=== PATIENT | female | born 1935 | race Hispanic/Latino ===

== ENCOUNTER 2017-04-29 19:18 | Inpatient (IN) | payer MEDICARE ==
[2017-04-29 20:32] LABS: BASOPHILS % (AUTO) 0.1 % (0.0-5.0); LYMPHOCYTES % (AUTO) 6.2 % (21.0-51.0); MEAN CORPUSCULAR HEMOGLOBIN 25.7 pg (27.0-33.0); MEAN CORPUSCULAR HGB CONC 31.6 g/dL (32.0-36.0); MEAN CORPUSCULAR VOLUME 81.5 fL (79-99); MONOCYTES % (AUTO) 7.2 % (3.0-13.0); NEUTROPHILS % (AUTO) 85.5 % (40.0-77.0); NUCLEATED RED BLOOD CELLS 0.6 % (0.0-0.19); PLATELET COUNT (AUTO) 351 K/uL (130-400); RED CELL DISTRIBUTION WIDTH 16.7 % (11.0-15.5); WHITE BLOOD COUNT (AUTO) 16.5 K/uL (4.8-10.8)
[2017-04-29 20:44] LABS: HEMATOCRIT 17.9 % (36-48)
[2017-04-29 21:00] LABS: INR 0.96 (0.85-1.15); PARTIAL THROMBOPLASTIN TIME 23.5 SEC (26.3-35.5); PROTHROMBIN TIME 10.1 SEC (9.6-11.6)
[2017-04-29 21:05] LABS: CREATININE 1.1 mg/dL (0.5-1.5); POTASSIUM 4.5 mmol/L (3.5-5.1)
[2017-04-29 21:09] LABS: ALBUMIN 2.2 g/dL (3.5-5.0); BILIRUBIN,TOTAL 0.2 mg/dL (0.2-1.0); TOTAL PROTEIN, SERUM 6.7 g/dL (6.0-8.3)
[2017-04-29] MEDS ORDERED: FAMOTIDINE 20MG TAB 20 MG TAB ONE (22:50)
[2017-04-30] VITALS (21 sets, daily range): BP systolic 93–150; BP diastolic 44–72
[2017-04-30] MEDS ORDERED: SODIUM CHLORIDE 0.9% 100 ML IV ONE (00:31)
[2017-04-30] MEDS ORDERED: DEXTROSE 50%-WATER 50 ML DISP.SYRIN IV PRN ×2 (00:45→02:30)
[2017-04-30] MEDS ORDERED: ONDANSETRON HCL 4 MG/2 ML VIAL IVP PRN (00:45)
[2017-04-30] MEDS ORDERED: GLUCAGON 1MG KIT 1 MG ML IM PRN ×2 (00:45→02:30)
[2017-04-30] MEDS ORDERED: MEROPENEM 500MG+NS 50ML 50 ML IV SCH (06:00)
[2017-04-30] MEDS ORDERED: MEROPENEM 500 MG VIAL IVP SCH (06:30)
[2017-04-30] MEDS: INSULIN HUMULIN R 100 UNIT/ML 3ML SQ SCH ×4 (07:30→20:35)
[2017-04-30] MEDS ORDERED: INSULIN R PO SS1 SQ SCH (07:30)
[2017-04-30] MEDS ORDERED: PRED5TAB44 PO (07:38)
[2017-04-30] MEDS ORDERED: METH250T11 PO (07:47)
[2017-04-30] MEDS ORDERED: GLYB-228 PO (07:47)
[2017-04-30] MEDS ORDERED: [UNRECOGNIZED DRUG - OTHER] (07:47)
[2017-04-30] MEDS ORDERED: KETO10 PO (07:51)
[2017-04-30] MEDS ORDERED: TRAM50TA4 PO (07:51)
[2017-04-30] MEDS ORDERED: VITA1CAP85 PO (07:51)
[2017-04-30 08:32] LABS: HEMATOCRIT 25.6 % (36-48); MEAN CORPUSCULAR HEMOGLOBIN 27.6 pg (27.0-33.0); MEAN CORPUSCULAR HGB CONC 33.7 g/dL (32.0-36.0); MEAN CORPUSCULAR VOLUME 81.8 fL (79-99); NUCLEATED RED BLOOD CELLS 0.1 % (0.0-0.19); PLATELET COUNT (AUTO) 283 K/uL (130-400); RED BLOOD CELL COUNT(AUTO) 3.12 MIL/uL (4.00-5.50); RED CELL DISTRIBUTION WIDTH 16.3 % (11.0-15.5); WHITE BLOOD COUNT (AUTO) 15.2 K/uL (4.8-10.8)
[2017-04-30 08:56] LABS: LYMPHOCYTES % (MANUAL) 5 % (22-44); MAN.DIFF COMMENT-IMPRESSION MANUAL DIFFERENTIAL; MONOCYTES % (MANUAL) 1 % (2-9); PLATELET MORPHOLOGY COMMENT ADEQUATE; SEGMENTED NEUTROPHILS % 94 % (40-70)
[2017-04-30] MEDS: FAMOTIDINE 20MG TAB 20 MG TAB PO SCH ×2 (11:09→20:34)
[2017-04-30] MEDS: LEVOFLOXACIN 500 MG/D5W 100 ML 100 ML IV SCH (11:10)
[2017-04-30] MEDS: PANTOPRAZOLE SODIUM 40 MG TABLET.DR PO SCH (16:48)
[2017-04-30] MEDS: GLYBURIDE/METFORMIN HCL 5/500MG TABLET PO SCH (16:48)
[2017-04-30] MEDS: MEROPENEM 500 MG VIAL IVP SCH (20:35)
[2017-04-30] MEDS: TRAMADOL HCL 50 MG TABLET PO SCH (20:37)
[2017-05-01 04:22] VITALS: BP 120/62
[2017-05-01] MEDS: MEROPENEM 500 MG VIAL IVP SCH ×3 (04:36→19:00)
[2017-05-01 05:43] LABS: CREATININE 0.8 mg/dL (0.5-1.5); POTASSIUM 4.9 mmol/L (3.5-5.1)
[2017-05-01 05:44] LABS: HEMATOCRIT 26.9 % (36-48); MEAN CORPUSCULAR HEMOGLOBIN 26.6 pg (27.0-33.0); MEAN CORPUSCULAR HGB CONC 32.8 g/dL (32.0-36.0); MEAN CORPUSCULAR VOLUME 81.2 fL (79-99); NUCLEATED RED BLOOD CELLS 0.1 % (0.0-0.19); PLATELET COUNT (AUTO) 301 K/uL (130-400); RED BLOOD CELL COUNT(AUTO) 3.31 MIL/uL (4.00-5.50); RED CELL DISTRIBUTION WIDTH 16.5 % (11.0-15.5); WHITE BLOOD COUNT (AUTO) 15.3 K/uL (4.8-10.8)
[2017-05-01] MEDS: INSULIN HUMULIN R 100 UNIT/ML 3ML SQ SCH ×4 (06:41→21:00)
[2017-05-01] MEDS: PANTOPRAZOLE SODIUM 40 MG TABLET.DR PO SCH ×2 (06:46→16:57)
[2017-05-01 07:35] VITALS: BP 135/57
[2017-05-01 08:17] LABS: EOSINOPHILS % (MANUAL) 1 % (1-6); LYMPHOCYTES % (MANUAL) 5 % (22-44); MAN.DIFF COMMENT-IMPRESSION MANUAL DIFFERENTIAL; MONOCYTES % (MANUAL) 5 % (2-9); PLATELET MORPHOLOGY COMMENT ADEQUATE; SEGMENTED NEUTROPHILS % 89 % (40-70)
[2017-05-01] MEDS: TRAMADOL HCL 50 MG TABLET PO SCH ×2 (09:00→21:00)
[2017-05-01] MEDS: GLYBURIDE/METFORMIN HCL 5/500MG TABLET PO SCH ×3 (09:10→16:57)
[2017-05-01] MEDS: VITAMIN B COMPLEX 1 CAPSULE PO SCH (09:10)
[2017-05-01] MEDS: FAMOTIDINE 20MG TAB 20 MG TAB PO SCH ×2 (09:11→21:45)
[2017-05-01] MEDS: LEVOFLOXACIN 500 MG/D5W 100 ML 100 ML IV SCH (11:27)
[2017-05-01 11:35] VITALS: BP 125/66
[2017-05-01 17:09] VITALS: BP 122/59
[2017-05-01] MEDS ORDERED: MAGNESIUM HYDROXIDE 30 ML/UDCUP PO SCH (19:00)
[2017-05-01 20:00] VITALS: BP 107/58
[2017-05-02] VITALS: BP 137/71
[2017-05-02 04:00] VITALS: BP 115/54
[2017-05-02] MEDS: MEROPENEM 500 MG VIAL IVP SCH (04:54)
[2017-05-02] MEDS: LEVOFLOXACIN 500 MG/D5W 100 ML 100 ML IV SCH (04:54)
[2017-05-02 05:36] LABS: HEMATOCRIT 26.4 % (36-48); MEAN CORPUSCULAR HEMOGLOBIN 27.7 pg (27.0-33.0); MEAN CORPUSCULAR HGB CONC 34.2 g/dL (32.0-36.0); MEAN CORPUSCULAR VOLUME 81.2 fL (79-99); NUCLEATED RED BLOOD CELLS 0.1 % (0.0-0.19); PLATELET COUNT (AUTO) 316 K/uL (130-400); RED BLOOD CELL COUNT(AUTO) 3.25 MIL/uL (4.00-5.50); RED CELL DISTRIBUTION WIDTH 17.1 % (11.0-15.5); WHITE BLOOD COUNT (AUTO) 12.6 K/uL (4.8-10.8)
[2017-05-02 05:47] LABS: POTASSIUM 4.7 mmol/L (3.5-5.1)
[2017-05-02] MEDS: PANTOPRAZOLE SODIUM 40 MG TABLET.DR PO SCH (06:35)
[2017-05-02] MEDS: INSULIN HUMULIN R 100 UNIT/ML 3ML SQ SCH (06:39)
[2017-05-02 07:18] LABS: EOSINOPHILS % (MANUAL) 1 % (1-6); LYMPHOCYTES % (MANUAL) 8 % (22-44); MONOCYTES % (MANUAL) 6 % (2-9); SEGMENTED NEUTROPHILS % 85 % (40-70)
[2017-05-02 07:19] LABS: MAN.DIFF COMMENT-IMPRESSION MANUAL DIFFERENTIAL; PLATELET MORPHOLOGY COMMENT ADEQUATE
[2017-05-02 07:48] VITALS: BP 127/62
[2017-05-02] MEDS: GLYBURIDE/METFORMIN HCL 5/500MG TABLET PO SCH (07:55)
[2017-05-02] MEDS: VITAMIN B COMPLEX 1 CAPSULE PO SCH (07:55)
[2017-05-02] MEDS: FAMOTIDINE 20MG TAB 20 MG TAB PO SCH (07:55)
[2017-05-02] MEDS: TRAMADOL HCL 50 MG TABLET PO SCH (07:56)
== END 2017-05-02 12:00 | disposition home or self-care (01) | DRG 377 ==
LOC: EDH 19:18 → EDHIP 23:20 → 4AH 04-30 07:21
PROVIDERS: ADMIT Internal Medicine Nephrology; ATTEND Internal Medicine Nephrology
PROC: 0DB68ZX Excision of Stomach, Via Natural or Artificial Opening Endoscopic, Diagnostic (ICD-10-PCS; principal; 2017-04-30)
PROC: 30233N1 Transfusion of Nonautologous Red Blood Cells into Peripheral Vein, Percutaneous Approach (ICD-10-PCS; 2017-04-30)
DX: K25.4 Chronic or unspecified gastric ulcer with hemorrhage (principal); E43 Unspecified severe protein-calorie malnutrition; N13.30 Unspecified hydronephrosis; E11.9 Type 2 diabetes mellitus without complications; D50.9 Iron deficiency anemia, unspecified; K57.32 Diverticulitis of large intestine without perforation or abscess without bleeding; D72.829 Elevated white blood cell count, unspecified; I10 Essential (primary) hypertension; K80.20 Calculus of gallbladder without cholecystitis without obstruction; N32.89 Other specified disorders of bladder
CPT/HCPCS: 36415; 71045; 74176; 80048; 80053; 82270; 82550; 82948; 84484; 85025; 85060; 85610; 85730; 86850; 86900; 86901; 86922; 88305; 88313; 88341; 88342; 93005; 99291; A4218; J1815; J1956; J2185; P9016

== ENCOUNTER 2017-05-25 14:16 | Inpatient (IN) | payer MEDICARE ==
[~2017-05-25] VITALS: Ht 157.5 cm; Wt 49.7 kg
[~2017-05-25 14:16] MED LIST: GLYB-228 PO; METH250T3 PO; TRAM50TA4 PO; VITA1CAP85 PO
[2017-05-25 15:20] LABS: HEMATOCRIT 23.6 % (36-48); MEAN CORPUSCULAR HEMOGLOBIN 25.8 pg (27.0-33.0); MEAN CORPUSCULAR HGB CONC 31.9 g/dL (32.0-36.0); MEAN CORPUSCULAR VOLUME 80.9 fL (79-99); PLATELET COUNT (AUTO) 317 K/uL (130-400); RED BLOOD CELL COUNT(AUTO) 2.92 MIL/uL (4.00-5.50); RED CELL DISTRIBUTION WIDTH 17.5 % (11.0-15.5); WHITE BLOOD COUNT (AUTO) 13.6 K/uL (4.8-10.8)
[2017-05-25] MEDS ORDERED: POTASSIUM CHLORIDE 10% ELIXIR 20 MEQ/15 ML UDCUP PO PRN (15:30)
[2017-05-25] MEDS ORDERED: DEXTROSE 50%-WATER 50 ML DISP.SYRIN IV PRN (15:30)
[2017-05-25] MEDS ORDERED: MAG HYDROX/AL HYDROX/SIMETH ES 30 ML SUSP UDCUP PO PRN (15:30)
[2017-05-25] MEDS ORDERED: DiphenhydrAMINE HCL 50 MG/ML VIAL IVP PRN (15:30)
[2017-05-25] MEDS ORDERED: GUAIFENESIN-DM 200/20 MG 10 ML PO PRN (15:30)
[2017-05-25] MEDS ORDERED: LIDOCAINE HCL-MPF 1% 2ML VIAL IJ PRN (15:30)
[2017-05-25] MEDS ORDERED: NITROGLYCERIN 0.4 MG SL TAB SL PRN (15:30)
[2017-05-25] MEDS ORDERED: POTASSIUM CHLORIDE 20MEQ/100ML 100 ML IV PRN (15:30)
[2017-05-25] MEDS ORDERED: LACTULOSE 20 GM/30 ML UDCUP PO PRN (15:30)
[2017-05-25] MEDS ORDERED: SODIUM CHLORIDE 0.9% 10 ML VIAL IVP SCH (15:30)
[2017-05-25] MEDS ORDERED: ZOLPIDEM TARTRATE 5 MG TAB PO PRN (15:30)
[2017-05-25] MEDS ORDERED: ONDANSETRON HCL 4 MG/2 ML VIAL IVP PRN (15:30)
[2017-05-25] MEDS ORDERED: DIPHENHYDRAMINE HCL 25 MG CAPSULE PO PRN (15:30)
[2017-05-25] MEDS ORDERED: CLONIDINE HCL 0.1 MG TABLET PO PRN (15:30)
[2017-05-25] MEDS ORDERED: GLUCAGON 1MG KIT 1 MG ML IM PRN (15:30)
[2017-05-25] MEDS ORDERED: ACETAMINOPHEN 325 MG TAB PO PRN ×2 (15:30)
[2017-05-25 15:42] LABS: ALBUMIN 2.1 g/dL (3.5-5.0); BILIRUBIN,TOTAL 0.2 mg/dL (0.2-1.0); POTASSIUM 4.2 mmol/L (3.5-5.1); TOTAL PROTEIN, SERUM 7.2 g/dL (6.0-8.3)
[2017-05-25 16:00] VITALS: BP 109/60
[2017-05-25] MEDS ORDERED: HYDR-4379 PO (16:33)
[2017-05-25] MEDS ORDERED: PANT40SU PO (16:33)
[2017-05-25] MEDS ORDERED: FERR325T22 PO (16:33)
[2017-05-25] MEDS ORDERED: METF500T6 PO (16:33)
[2017-05-25] MEDS ORDERED: GLIP5POW MC (16:33)
[2017-05-25] MEDS: INSULIN R PO SSI SQ SCH ×2 (16:47→21:00)
[2017-05-25] MEDS: FUROSEMIDE 10 MG/ML 2ML VIAL IVP SCH (16:50)
[2017-05-25 19:18] LABS: APPEARANCE,URINE Clear (CLEAR); BILIRUBIN,URINE Negative (NEGATIVE); COLOR,URINE Yellow (YELLOW); GLUCOSE, URINE (UA) Negative (NEGATIVE); KETONES,URINE Negative (NEGATIVE); LEUKOCYTE ESTERASE ,URINE Negative (NEGATIVE); NITRATE,URINE Negative (NEGATIVE); OCCULT BLOOD,URINE Negative (NEGATIVE); PROTEIN,URINE Negative (NEGATIVE)
[2017-05-25] MEDS ORDERED: HYDROCODONE ACETAMIN PO PRN (19:30)
[2017-05-25 19:45] VITALS: BP_SYST 107; BP_SYST 122; BP_DIAS 46; BP_DIAS 78
[2017-05-25] MEDS: FAMOTIDINE 20MG TAB 20 MG TAB PO SCH (21:30)
[2017-05-25] MEDS: FERROUS SULFATE 325 MG TABLET.DR PO SCH (21:31)
[2017-05-26 00:58] VITALS: BP 121/59
[2017-05-26 03:35] VITALS: BP 114/53
[2017-05-26] MEDS: FUROSEMIDE 10 MG/ML 2ML VIAL IVP SCH ×2 (04:51→15:38)
[2017-05-26] MEDS: INSULIN R PO SSI SQ SCH ×3 (06:21→21:00)
[2017-05-26] MEDS ORDERED: DOCUSATE SODIUM 100 MG CAP PO PRN (07:30)
[2017-05-26 08:28] VITALS: BP 120/54
[2017-05-26] MEDS ORDERED: CEFTRIAXONE 1GM/D5W 50ML 50 ML IV SCH (08:45)
[2017-05-26] MEDS: FERROUS SULFATE 325 MG TABLET.DR PO SCH ×3 (09:45→21:56)
[2017-05-26] MEDS: PANTOPRAZOLE SODIUM 40 MG TABLET.DR PO SCH (09:46)
[2017-05-26] MEDS: FAMOTIDINE 20MG TAB 20 MG TAB PO SCH ×2 (09:46→21:57)
[2017-05-26] MEDS: CEFTRIAXONE SODIUM 1 GM IVP SCH (10:28)
[2017-05-26 11:53] VITALS: BP 124/64
[2017-05-26 16:00] VITALS: BP 129/58
[2017-05-26 20:00] VITALS: BP 120/58
[2017-05-27] VITALS: BP 120/57
[2017-05-27 04:00] VITALS: BP 114/46
[2017-05-27] MEDS: FUROSEMIDE 10 MG/ML 2ML VIAL IVP SCH (05:51)
[2017-05-27 06:05] LABS: HEMATOCRIT 22.3 % (36-48); MEAN CORPUSCULAR HEMOGLOBIN 27.1 pg (27.0-33.0); MEAN CORPUSCULAR HGB CONC 33.8 g/dL (32.0-36.0); PLATELET COUNT (AUTO) 250 K/uL (130-400); RED BLOOD CELL COUNT(AUTO) 2.79 MIL/uL (4.00-5.50); RED CELL DISTRIBUTION WIDTH 17.8 % (11.0-15.5); WHITE BLOOD COUNT (AUTO) 10.7 K/uL (4.8-10.8)
[2017-05-27 06:16] LABS: CREATININE 0.8 mg/dL (0.5-1.5); POTASSIUM 3.4 mmol/L (3.5-5.1)
[2017-05-27] MEDS: INSULIN R PO SSI SQ SCH ×4 (06:56→21:00)
[2017-05-27 08:00] VITALS: BP_SYST 102; BP_SYST 111; BP_SYST 142; BP_DIAS 49; BP_DIAS 53; BP_DIAS 80
[2017-05-27] MEDS ORDERED: KETOROLAC TROMETHAMINE 15MG/ML IV SCH (09:00)
[2017-05-27] MEDS ORDERED: LACTULOSE 20 GM/30 ML UDCUP PO PRN (09:00)
[2017-05-27] MEDS ORDERED: KETOROLAC TROMETHAMINE 15MG/ML ONE (09:26)
[2017-05-27] MEDS: PANTOPRAZOLE SODIUM 40 MG TABLET.DR PO SCH (10:14)
[2017-05-27] MEDS: FERROUS SULFATE 325 MG TABLET.DR PO SCH ×3 (10:14→22:12)
[2017-05-27] MEDS: CEFTRIAXONE SODIUM 1 GM IVP SCH (10:14)
[2017-05-27] MEDS: FAMOTIDINE 20MG TAB 20 MG TAB PO SCH ×2 (10:15→22:12)
[2017-05-27 11:54] VITALS: BP 116/56
[2017-05-27 16:00] VITALS: BP 114/54
[2017-05-27 19:00] VITALS: BP 108/44
[2017-05-28] VITALS: BP 114/52
[2017-05-28 04:00] VITALS: BP 109/52
[2017-05-28 05:55] LABS: HEMATOCRIT 23.8 % (36-48); MEAN CORPUSCULAR HGB CONC 32.5 g/dL (32.0-36.0); MEAN CORPUSCULAR VOLUME 79.9 fL (79-99); PLATELET COUNT (AUTO) 259 K/uL (130-400); RED BLOOD CELL COUNT(AUTO) 2.98 MIL/uL (4.00-5.50); RED CELL DISTRIBUTION WIDTH 17.8 % (11.0-15.5); WHITE BLOOD COUNT (AUTO) 9.6 K/uL (4.8-10.8)
[2017-05-28 06:02] LABS: POTASSIUM 3.3 mmol/L (3.5-5.1)
[2017-05-28 06:12] LABS: % IRON SATURATION 10.5 % (22-44)
[2017-05-28] MEDS: INSULIN R PO SSI SQ SCH ×4 (07:44→20:26)
[2017-05-28 08:00] VITALS: BP 142/60
[2017-05-28] MEDS: FERROUS SULFATE 325 MG TABLET.DR PO SCH ×3 (08:39→20:26)
[2017-05-28] MEDS: PANTOPRAZOLE SODIUM 40 MG TABLET.DR PO SCH (08:39)
[2017-05-28] MEDS: POTASSIUM CHLORIDE 20 MEQ ERTAB PO PRN ×3 (08:39→15:02)
[2017-05-28] MEDS: FAMOTIDINE 20MG TAB 20 MG TAB PO SCH ×2 (08:39→20:26)
[2017-05-28] MEDS: CEFTRIAXONE SODIUM 1 GM IVP SCH (10:21)
[2017-05-28 11:19] VITALS: BP 119/55
[2017-05-28 15:55] VITALS: BP 106/54
[2017-05-28 19:00] VITALS: BP 121/69
[2017-05-29] VITALS: BP 136/82
[2017-05-29 04:00] VITALS: BP 111/52
[2017-05-29] MEDS: INSULIN R PO SSI SQ SCH (06:30)
[2017-05-29 08:00] VITALS: BP 130/80
== END 2017-05-29 10:00 | disposition home or self-care (01) | DRG 203 ==
LOC: EDH 14:16 → 3AH 14:17
PROVIDERS: ADMIT Family Medicine; ATTEND Family Medicine
DX: J20.9 Acute bronchitis, unspecified (principal); I95.9 Hypotension, unspecified; J84.10 Pulmonary fibrosis, unspecified; D64.9 Anemia, unspecified; E11.9 Type 2 diabetes mellitus without complications; D72.829 Elevated white blood cell count, unspecified; W19.XXXA Unspecified fall, initial encounter; I10 Essential (primary) hypertension; R09.89 Other specified symptoms and signs involving the circulatory and respiratory systems; M19.90 Unspecified osteoarthritis, unspecified site; Y93.89 Activity, other specified; Y92.89 Other specified places as the place of occurrence of the external cause; Y99.8 Other external cause status
CPT/HCPCS: 36415; 71046; 80048; 80053; 81003; 82607; 82746; 82948; 83540; 83550; 83880; 84132; 85027; 92610; 93306; 97039; A4218; J0696; J1815; J1885; J1940

== ENCOUNTER 2017-06-09 06:00 | Day surgery (SDC) | payer MEDICARE ==
[~2017-06-09] VITALS: Ht 154.9 cm; Wt 52.2 kg
[~2017-06-09 06:00] MED LIST changes: +FERR325T22 PO; +GLIP5POW MC; -GLYB-228 PO; +HYDR-4379 PO; +METF500T6 PO; +PANT40SU PO; -TRAM50TA4 PO; -VITA1CAP85 PO
[2017-06-09 07:33] VITALS: BP 135/57
== END 2017-06-09 09:21 ==
LOC: ENDO 06:00 → DAH 06:00 → ENDO 09:21
PROVIDERS: ATTEND Internal Medicine
DX: K29.50 Unspecified chronic gastritis without bleeding (principal); D50.9 Iron deficiency anemia, unspecified; K25.9 Gastric ulcer, unspecified as acute or chronic, without hemorrhage or perforation; E11.9 Type 2 diabetes mellitus without complications; I10 Essential (primary) hypertension; Z68.22 Body mass index [BMI] 22.0-22.9, adult
CPT/HCPCS: 43239; 82948 ×2; 88305; 88312; 93005; A4606

== ENCOUNTER → 2017-08-18 | Outpatient (CLI) | payer MEDICARE ==
[~2017-08-18] MED LIST changes: -HYDR-4379 PO
== END | disposition home or self-care (01) ==
LOC: RAH 13:08
PROVIDERS: ATTEND Family Medicine
DX: M19.90 Unspecified osteoarthritis, unspecified site (principal)
CPT/HCPCS: 78306; A9503

== ENCOUNTER 2018-01-29 11:20 | Inpatient (IN) | payer MEDICARE ==
[~2018-01-29] VITALS: Ht 154.9 cm; Wt 49.7 kg
[~2018-01-29 11:20] MED LIST changes: +METF-444 PO; -METF500T6 PO
[2018-01-29] MEDS ORDERED: SODIUM CHLORIDE 0.9% 50 ML IV ONE ×2 (12:06→14:54)
[2018-01-29] MEDS ORDERED: ZOSYN 3.375GM+NS 50ML 50 ML IV ONE (12:06)
[2018-01-29 12:11] LABS: BASOPHILS % (AUTO) 0.4 % (0.0-5.0); EOSINOPHILS % (AUTO) 3.2 % (0.0-8.0); HEMATOCRIT 27.2 % (36-48); LYMPHOCYTES % (AUTO) 15.1 % (21.0-51.0); MEAN CORPUSCULAR HEMOGLOBIN 25.3 pg (27.0-33.0); MEAN CORPUSCULAR HGB CONC 32.1 g/dL (32.0-36.0); MEAN CORPUSCULAR VOLUME 78.9 fL (79-99); MONOCYTES % (AUTO) 6.2 % (3.0-13.0); NEUTROPHILS % (AUTO) 75.1 % (40.0-77.0); PLATELET COUNT (AUTO) 348 K/uL (130-400); RED BLOOD CELL COUNT(AUTO) 3.45 MIL/uL (4.00-5.50); RED CELL DISTRIBUTION WIDTH 15.8 % (11.0-15.5); WHITE BLOOD COUNT (AUTO) 9.2 K/uL (4.8-10.8)
[2018-01-29] MEDS ORDERED: DIPHENHYDRAMINE HCL 25 MG CAPSULE PO PRN (12:15)
[2018-01-29] MEDS ORDERED: LACTULOSE 20 GM/30 ML UDCUP PO PRN (12:15)
[2018-01-29] MEDS ORDERED: MAG HYDROX/AL HYDROX/SIMETH ES 30 ML SUSP UDCUP PO PRN (12:15)
[2018-01-29] MEDS ORDERED: ZOLPIDEM TARTRATE 5 MG TAB PO PRN (12:15)
[2018-01-29] MEDS ORDERED: GUAIFENESIN-DM 200/20 MG 10 ML PO PRN (12:15)
[2018-01-29] MEDS ORDERED: NITROGLYCERIN 0.4 MG SL TAB SL PRN (12:15)
[2018-01-29] MEDS ORDERED: IPRATROPIUM/ALBUTEROL SULFATE 3 ML SOLUTION IH PRN (12:15)
[2018-01-29] MEDS ORDERED: SODIUM CHLORIDE 0.9% 10 ML VIAL IVP PRN (12:15)
[2018-01-29] MEDS ORDERED: ONDANSETRON HCL 4 MG/2 ML VIAL IVP PRN (12:15)
[2018-01-29] MEDS ORDERED: ACETAMINOPHEN-CODEINE 300/30MG TAB PO PRN (12:15)
[2018-01-29] MEDS ORDERED: ACETAMINOPHEN 325 MG TAB PO PRN ×2 (12:15)
[2018-01-29] MEDS ORDERED: LORAZEPAM 2 MG/ML 1 ML VIAL IVP PRN (12:15)
[2018-01-29] MEDS ORDERED: COMPOUND IV REFRIGERATED 1 EACH IVSOLN MISC PRN (12:15)
[2018-01-29] MEDS ORDERED: DiphenhydrAMINE HCL 50 MG/ML VIAL IVP PRN (12:15)
[2018-01-29] MEDS ORDERED: POTASSIUM CHLORIDE 10% ELIXIR 20 MEQ/15 ML UDCUP PO PRN (12:15)
[2018-01-29 12:27] LABS: ALBUMIN 2.9 g/dL (3.5-5.0); BILIRUBIN,TOTAL 0.1 mg/dL (0.2-1.0); CREATININE 2.1 mg/dL (0.5-1.5); TOTAL PROTEIN, SERUM 8.2 g/dL (6.0-8.3)
[2018-01-29 12:30] LABS: POTASSIUM 6.7 mmol/L (3.5-5.1)
[2018-01-29] MEDS ORDERED: IPRATROPIUM/ALBUTEROL SULFATE 3 ML SOLUTION IH ONE (12:55)
[2018-01-29] MEDS: VANCOMYCIN 750MG + NS 250 ML IV SCH ×2 (13:00)
[2018-01-29 13:55] LABS: CREATININE 2.1 mg/dL (0.5-1.5)
[2018-01-29 14:03] LABS: POTASSIUM 6.6 mmol/L (3.5-5.1)
[2018-01-29] MEDS ORDERED: DEXTROSE 50%-WATER 50 ML DISP.SYRIN IV ONE (14:51)
[2018-01-29] MEDS ORDERED: SODIUM CHLORIDE 0.9% 1000ML 1,000 ML IV ONE (14:51)
[2018-01-29] MEDS ORDERED: INSULIN HUMULIN R 100 UNIT/ML 3ML ONE (14:52)
[2018-01-29] MEDS ORDERED: SODIUM POLYSTYRENE SULFONATE 15 GM/60 ML ML ONE (14:53)
[2018-01-29 15:30] VITALS: BP 137/59
[2018-01-29] MEDS: SODIUM CHLORIDE 0.9% 1000ML 1,000 ML IV SCH ×2 (15:45→23:45)
[2018-01-29 16:11] LABS: ALBUMIN 2.7 g/dL (3.5-5.0); BILIRUBIN,TOTAL 0.1 mg/dL (0.2-1.0); CREATININE 2.2 mg/dL (0.5-1.5); POTASSIUM 5.5 mmol/L (3.5-5.1); TOTAL PROTEIN, SERUM 7.4 g/dL (6.0-8.3)
[2018-01-29 16:18] LABS: BASOPHILS % (AUTO) 0.4 % (0.0-5.0); EOSINOPHILS % (AUTO) 3.6 % (0.0-8.0); HEMATOCRIT 24.6 % (36-48); LYMPHOCYTES % (AUTO) 15.7 % (21.0-51.0); MEAN CORPUSCULAR HEMOGLOBIN 25.2 pg (27.0-33.0); MEAN CORPUSCULAR VOLUME 78.8 fL (79-99); MONOCYTES % (AUTO) 7.7 % (3.0-13.0); NEUTROPHILS % (AUTO) 72.6 % (40.0-77.0); PLATELET COUNT (AUTO) 287 K/uL (130-400); RED BLOOD CELL COUNT(AUTO) 3.12 MIL/uL (4.00-5.50); RED CELL DISTRIBUTION WIDTH 15.8 % (11.0-15.5); WHITE BLOOD COUNT (AUTO) 8.6 K/uL (4.8-10.8)
[2018-01-29] MEDS ORDERED: LOSA50TA25 PO (18:11)
[2018-01-29] MEDS ORDERED: FURO40TA5 PO (18:11)
[2018-01-29] MEDS ORDERED: SULF1TAB3 PO (18:11)
[2018-01-29] MEDS ORDERED: MELO-108 PO (18:11)
[2018-01-29 19:00] VITALS: BP 136/58
[2018-01-29] MEDS: ZOSYN 3.375GM+NS 50ML 50 ML IV SCH ×2 (20:15→21:29)
[2018-01-29 23:00] VITALS: BP 128/59
[2018-01-30] MEDS: SODIUM CHLORIDE 0.9% 1000ML 1,000 ML IV SCH ×4 (01:32→19:44)
[2018-01-30 04:20] VITALS: BP 123/62
[2018-01-30] MEDS: ZOSYN 3.375GM+NS 50ML 50 ML IV SCH ×3 (04:59→19:44)
[2018-01-30 05:15] LABS: BASOPHILS % (AUTO) 0.7 % (0.0-5.0); EOSINOPHILS % (AUTO) 4.9 % (0.0-8.0); HEMATOCRIT 24.1 % (36-48); LYMPHOCYTES % (AUTO) 17.8 % (21.0-51.0); MEAN CORPUSCULAR HEMOGLOBIN 24.9 pg (27.0-33.0); MEAN CORPUSCULAR HGB CONC 31.9 g/dL (32.0-36.0); MONOCYTES % (AUTO) 8.5 % (3.0-13.0); NEUTROPHILS % (AUTO) 68.1 % (40.0-77.0); PLATELET COUNT (AUTO) 268 K/uL (130-400); RED BLOOD CELL COUNT(AUTO) 3.09 MIL/uL (4.00-5.50); RED CELL DISTRIBUTION WIDTH 15.8 % (11.0-15.5)
[2018-01-30 05:21] LABS: POTASSIUM 5.7 mmol/L (3.5-5.1)
[2018-01-30 08:00] VITALS: BP 125/64
[2018-01-30] MEDS ORDERED: DOCUSATE SODIUM 100 MG CAP PO PRN (08:45)
[2018-01-30] MEDS ORDERED: FAMOTIDINE 20MG TAB 20 MG TAB PO SCH (09:00)
[2018-01-30] MEDS: SODIUM POLYSTYRENE SULFONATE 15 GM/60 ML ML PO SCH ×3 (10:34→15:32)
[2018-01-30] MEDS: PANTOPRAZOLE SODIUM 40 MG TABLET.DR PO SCH (10:35)
[2018-01-30 12:00] VITALS: BP_SYST 138; BP_SYST 145; BP_DIAS 54; BP_DIAS 90
[2018-01-30] MEDS: VANCOMYCIN 750MG + NS 250 ML IV SCH ×2 (13:13)
[2018-01-30 16:00] VITALS: BP 141/65
[2018-01-30 19:32] VITALS: BP 137/66
[2018-01-31] VITALS (7 sets, daily range): BP systolic 118–164; BP diastolic 53–97
[2018-01-31 04:19] LABS: HEMATOCRIT 21.5 % (36-48); MEAN CORPUSCULAR HGB CONC 31.9 g/dL (32.0-36.0); MEAN CORPUSCULAR VOLUME 78.3 fL (79-99); PLATELET COUNT (AUTO) 233 K/uL (130-400); RED BLOOD CELL COUNT(AUTO) 2.74 MIL/uL (4.00-5.50); RED CELL DISTRIBUTION WIDTH 15.4 % (11.0-15.5); WHITE BLOOD COUNT (AUTO) 6.9 K/uL (4.8-10.8)
[2018-01-31 04:40] LABS: ALBUMIN 2.2 g/dL (3.5-5.0); BILIRUBIN,TOTAL 0.2 mg/dL (0.2-1.0); CREATININE 1.4 mg/dL (0.5-1.5); POTASSIUM 3.5 mmol/L (3.5-5.1); TOTAL PROTEIN, SERUM 6.3 g/dL (6.0-8.3)
[2018-01-31] MEDS: ZOSYN 3.375GM+NS 50ML 50 ML IV SCH ×2 (05:07→12:15)
[2018-01-31] MEDS: SODIUM CHLORIDE 0.9% 1000ML 1,000 ML IV SCH ×2 (07:45→15:45)
[2018-01-31] MEDS ORDERED: FUROSEMIDE 10 MG/ML 2ML VIAL IV SCH (09:15)
[2018-01-31] MEDS: PANTOPRAZOLE SODIUM 40 MG TABLET.DR PO SCH (09:15)
[2018-01-31] MEDS ORDERED: FUROSEMIDE 10 MG/ML 2ML VIAL ONE (14:03)
[2018-01-31] MEDS: VANCOMYCIN 1GM+NS 250ML 250 ML IV SCH (14:10)
[2018-01-31 14:33] LABS: INR 0.98 (0.85-1.15); PARTIAL THROMBOPLASTIN TIME 29.2 SEC (26.3-35.5); PROTHROMBIN TIME 10.3 SEC (9.6-11.6)
[2018-02-01] VITALS (23 sets, daily range): BP systolic 133–171; BP diastolic 52–80
[2018-02-01 04:28] LABS: HEMATOCRIT 30.5 % (36-48); MEAN CORPUSCULAR HEMOGLOBIN 26.2 pg (27.0-33.0); MEAN CORPUSCULAR HGB CONC 33.1 g/dL (32.0-36.0); MEAN CORPUSCULAR VOLUME 79.3 fL (79-99); PLATELET COUNT (AUTO) 205 K/uL (130-400); RED BLOOD CELL COUNT(AUTO) 3.84 MIL/uL (4.00-5.50); RED CELL DISTRIBUTION WIDTH 15.5 % (11.0-15.5); WHITE BLOOD COUNT (AUTO) 8.3 K/uL (4.8-10.8)
[2018-02-01 04:32] LABS: CREATININE 1.1 mg/dL (0.5-1.5); POTASSIUM 3.1 mmol/L (3.5-5.1)
[2018-02-01] MEDS: LIDOCAINE HCL-MPF 1% 2ML VIAL IJ PRN (05:54)
[2018-02-01] MEDS: POTASSIUM CHLORIDE 20MEQ/100ML 100 ML IV PRN (05:55)
[2018-02-01] MEDS: SODIUM CHLORIDE 0.9% 1000ML 1,000 ML IV SCH (07:45)
[2018-02-01] MEDS: PANTOPRAZOLE SODIUM 40 MG TABLET.DR PO SCH (08:53)
[2018-02-01] MEDS: VANCOMYCIN 1GM+NS 250ML 250 ML IV SCH (14:00)
[2018-02-01] MEDS ORDERED: MIDAZOLAM HCL 1 MG/ML 2ML VIAL ONE (17:50)
[2018-02-01] MEDS ORDERED: MEPERIDINE-PF 50 MG/ML SYG ONE (17:50)
[2018-02-01] MEDS: CLONIDINE HCL 0.1 MG TABLET PO PRN (19:57)
[2018-02-02] MEDS: SODIUM CHLORIDE 0.9% 1000ML 1,000 ML IV SCH ×2 (03:15→22:06)
[2018-02-02] MEDS: PANTOPRAZOLE SODIUM 40 MG TABLET.DR PO SCH ×3 (03:18→22:05)
[2018-02-02] MEDS: SUCRALFATE 1 GM/10 ML PO SCH ×4 (03:18→22:05)
[2018-02-02 04:00] VITALS: BP 143/64
[2018-02-02 04:24] LABS: HEMATOCRIT 31.3 % (36-48); MEAN CORPUSCULAR HEMOGLOBIN 25.5 pg (27.0-33.0); MEAN CORPUSCULAR HGB CONC 32.5 g/dL (32.0-36.0); MEAN CORPUSCULAR VOLUME 78.6 fL (79-99); NUCLEATED RED BLOOD CELLS 0.1 % (0.0-0.19); PLATELET COUNT (AUTO) 178 K/uL (130-400); RED BLOOD CELL COUNT(AUTO) 3.98 MIL/uL (4.00-5.50); RED CELL DISTRIBUTION WIDTH 15.5 % (11.0-15.5); WHITE BLOOD COUNT (AUTO) 7.4 K/uL (4.8-10.8)
[2018-02-02 07:30] VITALS: BP 141/61
[2018-02-02 11:00] VITALS: BP 142/61
[2018-02-02] MEDS: VANCOMYCIN 1GM+NS 250ML 250 ML IV SCH (14:37)
[2018-02-02 16:00] VITALS: BP 142/72
[2018-02-02 19:49] VITALS: BP 159/82
[2018-02-03 00:04] VITALS: BP 152/69
[2018-02-03 04:41] LABS: HEMATOCRIT 29.6 % (36-48); MEAN CORPUSCULAR HEMOGLOBIN 26.3 pg (27.0-33.0); MEAN CORPUSCULAR HGB CONC 33.1 g/dL (32.0-36.0); MEAN CORPUSCULAR VOLUME 79.6 fL (79-99); PLATELET COUNT (AUTO) 176 K/uL (130-400); RED BLOOD CELL COUNT(AUTO) 3.72 MIL/uL (4.00-5.50); RED CELL DISTRIBUTION WIDTH 15.7 % (11.0-15.5); WHITE BLOOD COUNT (AUTO) 6.4 K/uL (4.8-10.8)
[2018-02-03 05:09] LABS: POTASSIUM 2.8 mmol/L (3.5-5.1)
[2018-02-03 05:17] VITALS: BP 146/58
[2018-02-03] MEDS: POTASSIUM CHLORIDE 20MEQ/100ML 100 ML IV PRN ×2 (06:35→11:26)
[2018-02-03] MEDS: SODIUM CHLORIDE 0.9% 1000ML 1,000 ML IV SCH (06:35)
[2018-02-03] MEDS: SUCRALFATE 1 GM/10 ML PO SCH ×4 (08:12→22:35)
[2018-02-03] MEDS: PANTOPRAZOLE SODIUM 40 MG TABLET.DR PO SCH ×2 (08:12→22:35)
[2018-02-03 09:07] VITALS: BP 140/80
[2018-02-03] MEDS: LIDOCAINE HCL-MPF 1% 2ML VIAL IJ PRN (11:25)
[2018-02-03 12:07] VITALS: BP 143/57
[2018-02-03] MEDS: VANCOMYCIN 1GM+NS 250ML 250 ML IV SCH (13:34)
[2018-02-03 16:27] VITALS: BP 161/60
[2018-02-03 20:00] VITALS: BP 156/67
[2018-02-04] VITALS: BP 140/59
[2018-02-04] MEDS: SODIUM CHLORIDE 0.9% 1000ML 1,000 ML IV SCH (02:37)
[2018-02-04 04:00] VITALS: BP 147/61
[2018-02-04 04:34] LABS: HEMATOCRIT 27.7 % (36-48); MEAN CORPUSCULAR HEMOGLOBIN 25.7 pg (27.0-33.0); MEAN CORPUSCULAR HGB CONC 32.4 g/dL (32.0-36.0); MEAN CORPUSCULAR VOLUME 79.4 fL (79-99); PLATELET COUNT (AUTO) 146 K/uL (130-400); RED BLOOD CELL COUNT(AUTO) 3.48 MIL/uL (4.00-5.50); RED CELL DISTRIBUTION WIDTH 15.6 % (11.0-15.5)
[2018-02-04 04:47] LABS: CREATININE 0.9 mg/dL (0.5-1.5)
[2018-02-04 04:54] LABS: BAND NEUTROPHILS % (MANUAL) 7 % (0-2); BASOPHILS % (MANUAL) 1 % (0-2); EOSINOPHILS % (MANUAL) 1 % (1-6); LYMPHOCYTES % (MANUAL) 13 % (22-44); MAN.DIFF COMMENT-IMPRESSION MANUAL DIFFERENTIAL; MONOCYTES % (MANUAL) 6 % (2-9); PLATELET MORPHOLOGY COMMENT ADEQUATE; SEGMENTED NEUTROPHILS % 72 % (40-70)
[2018-02-04] MEDS: LIDOCAINE HCL-MPF 1% 2ML VIAL IJ PRN (05:29)
[2018-02-04] MEDS: POTASSIUM CHLORIDE 20MEQ/100ML 100 ML IV PRN (05:29)
[2018-02-04] MEDS: PANTOPRAZOLE SODIUM 40 MG TABLET.DR PO SCH ×2 (07:57→22:03)
[2018-02-04] MEDS: POTASSIUM CHLORIDE 20 MEQ ERTAB PO PRN ×4 (07:58→18:26)
[2018-02-04 08:35] VITALS: BP 158/72
[2018-02-04] MEDS: SUCRALFATE 1 GM/10 ML PO SCH ×4 (09:51→22:03)
[2018-02-04 11:39] VITALS: BP 150/76
[2018-02-04] MEDS: VANCOMYCIN 1GM+NS 250ML 250 ML IV SCH (14:00)
[2018-02-04 16:11] VITALS: BP 137/67
[2018-02-04 20:00] VITALS: BP 163/82
[2018-02-05] VITALS: BP 143/62
[2018-02-05 04:00] VITALS: BP 154/73
[2018-02-05 06:11] LABS: HEMATOCRIT 29.2 % (36-48); MEAN CORPUSCULAR HGB CONC 32.6 g/dL (32.0-36.0); MEAN CORPUSCULAR VOLUME 79.8 fL (79-99); PLATELET COUNT (AUTO) 170 K/uL (130-400); RED BLOOD CELL COUNT(AUTO) 3.65 MIL/uL (4.00-5.50); RED CELL DISTRIBUTION WIDTH 16.1 % (11.0-15.5); WHITE BLOOD COUNT (AUTO) 6.8 K/uL (4.8-10.8)
[2018-02-05 06:27] LABS: CREATININE 0.9 mg/dL (0.5-1.5); POTASSIUM 3.9 mmol/L (3.5-5.1)
[2018-02-05 08:12] VITALS: BP 144/73
[2018-02-05] MEDS: SUCRALFATE 1 GM/10 ML PO SCH ×4 (09:00→20:53)
[2018-02-05] MEDS: PANTOPRAZOLE SODIUM 40 MG TABLET.DR PO SCH ×2 (10:52→20:47)
[2018-02-05] MEDS: VANCOMYCIN 1GM+NS 250ML 250 ML IV SCH (10:52)
[2018-02-05 12:41] VITALS: BP 178/84
[2018-02-05 17:34] VITALS: BP 156/60
[2018-02-05 20:13] VITALS: BP 158/68
[2018-02-06 00:17] VITALS: BP 143/61
[2018-02-06] MEDS: VANCOMYCIN 1GM+NS 250ML 250 ML IV SCH ×2 (04:22→22:48)
[2018-02-06 04:41] VITALS: BP 141/64
[2018-02-06 05:15] LABS: HEMATOCRIT 27.4 % (36-48); MEAN CORPUSCULAR HEMOGLOBIN 25.7 pg (27.0-33.0); MEAN CORPUSCULAR HGB CONC 32.3 g/dL (32.0-36.0); MEAN CORPUSCULAR VOLUME 79.6 fL (79-99); PLATELET COUNT (AUTO) 150 K/uL (130-400); RED BLOOD CELL COUNT(AUTO) 3.45 MIL/uL (4.00-5.50); RED CELL DISTRIBUTION WIDTH 15.9 % (11.0-15.5); WHITE BLOOD COUNT (AUTO) 6.6 K/uL (4.8-10.8)
[2018-02-06 08:00] VITALS: BP 128/57
[2018-02-06] MEDS: PANTOPRAZOLE SODIUM 40 MG TABLET.DR PO SCH ×2 (09:30→22:48)
[2018-02-06] MEDS: SUCRALFATE 1 GM/10 ML PO SCH ×4 (09:31→22:48)
[2018-02-06 12:00] VITALS: BP 129/94
[2018-02-06 16:00] VITALS: BP 139/61
[2018-02-06 19:58] VITALS: BP 144/67
[2018-02-07] VITALS (8 sets, daily range): BP systolic 137–148; BP diastolic 55–85
[2018-02-07] MEDS ORDERED: VANCOMYCIN 1GM+NS 250ML 250 ML IV SCH ×2 (06:21→22:30)
[2018-02-07] MEDS: SUCRALFATE 1 GM/10 ML PO SCH ×4 (08:32→20:38)
[2018-02-07] MEDS: PANTOPRAZOLE SODIUM 40 MG TABLET.DR PO SCH ×2 (08:32→20:38)
[2018-02-08 03:17] VITALS: BP 146/59
[2018-02-08 05:02] LABS: HEMATOCRIT 27.7 % (36-48); MEAN CORPUSCULAR HEMOGLOBIN 25.2 pg (27.0-33.0); MEAN CORPUSCULAR HGB CONC 31.7 g/dL (32.0-36.0); MEAN CORPUSCULAR VOLUME 79.6 fL (79-99); PLATELET COUNT (AUTO) 156 K/uL (130-400); RED BLOOD CELL COUNT(AUTO) 3.48 MIL/uL (4.00-5.50); RED CELL DISTRIBUTION WIDTH 16.2 % (11.0-15.5); WHITE BLOOD COUNT (AUTO) 5.7 K/uL (4.8-10.8)
[2018-02-08 07:52] VITALS: BP 160/58
[2018-02-08] MEDS: SUCRALFATE 1 GM/10 ML PO SCH ×3 (08:40→17:21)
[2018-02-08] MEDS: PANTOPRAZOLE SODIUM 40 MG TABLET.DR PO SCH (08:40)
[2018-02-08] MEDS: CLONIDINE HCL 0.1 MG TABLET PO PRN (09:26)
[2018-02-08 12:09] VITALS: BP 140/58
== END 2018-02-08 17:57 | DRG 378 ==
LOC: EDH 11:20 → EDHIP 11:21 → 4CH 15:17
PROVIDERS: ADMIT Family Medicine; ATTEND Family Medicine
PROC: 30233N1 Transfusion of Nonautologous Red Blood Cells into Peripheral Vein, Percutaneous Approach (ICD-10-PCS; 2018-01-31)
PROC: 0DB68ZX Excision of Stomach, Via Natural or Artificial Opening Endoscopic, Diagnostic (ICD-10-PCS; principal; 2018-02-01)
PROC: 0DB78ZX Excision of Stomach, Pylorus, Via Natural or Artificial Opening Endoscopic, Diagnostic (ICD-10-PCS; 2018-02-01)
DX: K25.4 Chronic or unspecified gastric ulcer with hemorrhage (principal); N17.9 Acute kidney failure, unspecified; D62 Acute posthemorrhagic anemia; L03.818 Cellulitis of other sites; I10 Essential (primary) hypertension; E87.5 Hyperkalemia; E87.6 Hypokalemia; E11.9 Type 2 diabetes mellitus without complications; L89.152 Pressure ulcer of sacral region, stage 2; D50.9 Iron deficiency anemia, unspecified; Z87.11 Personal history of peptic ulcer disease; Z83.3 Family history of diabetes mellitus; Z82.49 Family history of ischemic heart disease and other diseases of the circulatory system
CPT/HCPCS: 36415; 36430; 43239; 80048; 80053; 80202; 82270; 82607; 82746; 82948; 83540; 83550; 84132; 85025; 85027; 85610; 85730; 86850; 86900; 86901; 86922; 87040; 87070; 87077; 87186; 88305; 94640; 94664; G0378; J1815; J1940; J2175; J2250; J2543; J3370; J3480; J3490; J7030; J7070; P9016

== ENCOUNTER 2018-06-13 20:15 | Emergency (ER) | payer MEDICARE ==
[~2018-06-13 20:15] MED LIST changes: +FURO40TA5 PO; +LOSA50TA64 PO; +MELO-108 PO; +SULF1TAB3 PO
[2018-06-13 20:52] LABS: BASOPHILS % (AUTO) 0.5 % (0.0-5.0); EOSINOPHILS % (AUTO) 8.4 % (0.0-8.0); LYMPHOCYTES % (AUTO) 20.5 % (21.0-51.0); MEAN CORPUSCULAR HEMOGLOBIN 29.8 pg (27.0-33.0); MEAN CORPUSCULAR HGB CONC 33.3 g/dL (32.0-36.0); MEAN CORPUSCULAR VOLUME 89.4 fL (79-99); MONOCYTES % (AUTO) 8.4 % (3.0-13.0); NEUTROPHILS % (AUTO) 62.2 % (40.0-77.0); PLATELET COUNT (AUTO) 205 K/uL (130-400); RED BLOOD CELL COUNT(AUTO) 3.25 MIL/uL (4.00-5.50); RED CELL DISTRIBUTION WIDTH 16.2 % (11.0-15.5); WHITE BLOOD COUNT (AUTO) 5.9 K/uL (4.8-10.8)
[2018-06-13 21:11] LABS: ALBUMIN 3.6 g/dL (3.5-5.0); BILIRUBIN,TOTAL 0.1 mg/dL (0.2-1.0); CREATININE 2.3 mg/dL (0.5-1.5); TOTAL PROTEIN, SERUM 8.4 g/dL (6.0-8.3)
[2018-06-13 21:16] LABS: POTASSIUM 6.6 mmol/L (3.5-5.1)
[2018-06-13] MEDS ORDERED: SODIUM POLYSTYRENE SULFONATE 15 GM/60 ML ML ONE (21:19)
[2018-06-13 21:23] LABS: APPEARANCE,URINE SL CLOUDY (CLEAR); BILIRUBIN,URINE NEGATIVE (NEGATIVE); COLOR,URINE YELLOW (YELLOW); GLUCOSE, URINE (UA) NEGATIVE (NEGATIVE); KETONES,URINE NEGATIVE (NEGATIVE); LEUKOCYTE ESTERASE ,URINE TRACE (NEGATIVE); NITRATE,URINE NEGATIVE (NEGATIVE); OCCULT BLOOD,URINE NEGATIVE (NEGATIVE); PH,URINE 5.5 (5.0-8.0); PROTEIN,URINE NEGATIVE (NEGATIVE); UROBILINOGEN,URINE 0.2 mg/dL (0.2-1.0)
[2018-06-13 21:32] LABS: INR 0.92 (0.85-1.15); PROTHROMBIN TIME 9.7 SEC (9.6-11.6)
[2018-06-13 21:42] LABS: BACTERIA,URINE Rare /HPF (None Seen); RBC,URINE 0-1 /HPF (0-1); SQUAMOUS EPITHELIAL CELL,UR Rare /HPF (0-2); URIC ACID CRYSTALS,URINE Moderate /LPF (None Seen)
[2018-06-13 22:59] LABS: CREATININE 2.1 mg/dL (0.5-1.5)
[2018-06-13 23:16] LABS: POTASSIUM 6.4 mmol/L (3.5-5.1)
== END 2018-06-13 23:55 | disposition home or self-care (01) ==
LOC: EDH 20:15
DX: E87.5 Hyperkalemia (principal); E11.9 Type 2 diabetes mellitus without complications; I10 Essential (primary) hypertension
CPT/HCPCS: 36415; 80048; 80053; 81001; 84484; 85025; 85610; 85730; 93005

== ENCOUNTER 2018-08-27 15:42 | Inpatient (IN) | payer MEDICARE ==
[~2018-08-27] VITALS: Ht 160 cm; Wt 48.1 kg
[~2018-08-27 15:42] MED LIST changes: +AMLO5TAB4 PO; +CARAL PO; +CHOL50002 PO; +CLON.1 PO; -FURO40TA5 PO; -GLIP5POW MC; -LOSA50TA64 PO; -METF-444 PO; -METH250T3 PO; +PRED10TA3 PO; -SULF1TAB3 PO
[2018-08-27] MEDS ORDERED: FUROSEMIDE 10 MG/ML 4ML VIAL ONE (16:34)
[2018-08-27] MEDS ORDERED: ONDANSETRON HCL 4 MG/2 ML VIAL ONE (16:34)
[2018-08-27] MEDS ORDERED: LEVOFLOXACIN 500 MG/D5W 100 ML 100 ML ONE (16:35)
[2018-08-27 16:43] LABS: BASOPHILS % (AUTO) 0.4 % (0.0-5.0); EOSINOPHILS % (AUTO) 3.1 % (0.0-8.0); HEMATOCRIT 32.5 % (36-48); LYMPHOCYTES % (AUTO) 11.8 % (21.0-51.0); MEAN CORPUSCULAR HEMOGLOBIN 28.5 pg (27.0-33.0); MEAN CORPUSCULAR HGB CONC 32.7 g/dL (32.0-36.0); MEAN CORPUSCULAR VOLUME 87.2 fL (79-99); MONOCYTES % (AUTO) 9.1 % (3.0-13.0); NEUTROPHILS % (AUTO) 75.6 % (40.0-77.0); PLATELET COUNT (AUTO) 242 K/uL (130-400); RED BLOOD CELL COUNT(AUTO) 3.72 MIL/uL (4.00-5.50); RED CELL DISTRIBUTION WIDTH 15.7 % (11.0-15.5); WHITE BLOOD COUNT (AUTO) 9.7 K/uL (4.8-10.8)
[2018-08-27 16:58] LABS: CREATININE 1.4 mg/dL (0.5-1.5); POTASSIUM 5.6 mmol/L (3.5-5.1)
[2018-08-27 17:03] LABS: ALBUMIN 3.2 g/dL (3.5-5.0); BILIRUBIN,TOTAL 0.6 mg/dL (0.2-1.0); TOTAL PROTEIN, SERUM 7.8 g/dL (6.0-8.3)
[2018-08-27 20:56] LABS: APPEARANCE,URINE Clear (CLEAR); BILIRUBIN,URINE Negative (NEGATIVE); COLOR,URINE Yellow (YELLOW); GLUCOSE, URINE (UA) Negative (NEGATIVE); KETONES,URINE Negative (NEGATIVE); LEUKOCYTE ESTERASE ,URINE Small (NEGATIVE); NITRATE,URINE Negative (NEGATIVE); OCCULT BLOOD,URINE Negative (NEGATIVE); PROTEIN,URINE Negative (NEGATIVE); UROBILINOGEN,URINE 0.2 mg/dL (0.2-1.0)
[2018-08-27 21:07] LABS: BACTERIA,URINE Rare /HPF (None Seen); RBC,URINE 0-1 /HPF (0-1); SQUAMOUS EPITHELIAL CELL,UR Few /HPF (0-2)
[2018-08-28] MEDS ORDERED: FUROSEMIDE 10 MG/ML 4ML VIAL ONE (08:51)
[2018-08-28] MEDS ORDERED: DOCUSATE SODIUM 100 MG CAP PO PRN (10:15)
[2018-08-28] MEDS ORDERED: ACETAMINOPHEN 325 MG TAB PO PRN ×3 (10:15→21:30)
[2018-08-28] MEDS ORDERED: ONDANSETRON HCL 4 MG/2 ML VIAL IVP PRN ×2 (10:15→21:30)
[2018-08-28] MEDS ORDERED: LACTULOSE 20 GM/30 ML UDCUP PO PRN ×2 (10:15→21:30)
[2018-08-28] MEDS ORDERED: ZOSYN 3.375GM+NS 50ML 50 ML IV ONE (11:22)
[2018-08-28] MEDS ORDERED: FAMOTIDINE 20MG TAB 20 MG TAB ONE (13:06)
[2018-08-28 16:57] VITALS: BP 155/80
[2018-08-28] MEDS ORDERED: FURO40TA5 PO (17:50)
[2018-08-28] MEDS ORDERED: METF-444 PO (17:50)
[2018-08-28] MEDS ORDERED: OLME20TA22 PO (17:50)
[2018-08-28 19:59] VITALS: BP 149/91
[2018-08-28] MEDS: FUROSEMIDE 10 MG/ML 4ML VIAL IVP SCH (21:00)
[2018-08-28] MEDS: ZOSYN 3.375GM+NS 50ML 50 ML IV SCH (21:20)
[2018-08-28] MEDS ORDERED: POTASSIUM CHLORIDE 20 MEQ ERTAB PO PRN (21:30)
[2018-08-28] MEDS ORDERED: POTASSIUM CHLORIDE 10% ELIXIR 20 MEQ/15 ML UDCUP PO PRN (21:30)
[2018-08-28] MEDS ORDERED: NITROGLYCERIN 0.4 MG SL TAB SL PRN (21:30)
[2018-08-28] MEDS ORDERED: POTASSIUM CHLORIDE 20MEQ/100ML 100 ML IV PRN (21:30)
[2018-08-28] MEDS ORDERED: DiphenhydrAMINE HCL 50 MG/ML VIAL IVP PRN (21:30)
[2018-08-28] MEDS ORDERED: GUAIFENESIN-DM 200/20 MG 10 ML PO PRN (21:30)
[2018-08-28] MEDS ORDERED: IPRATROPIUM/ALBUTEROL SULFATE 3 ML SOLUTION IH PRN (21:30)
[2018-08-28] MEDS ORDERED: MAG HYDROX/AL HYDROX/SIMETH ES 30 ML SUSP UDCUP PO PRN (21:30)
[2018-08-28] MEDS ORDERED: LIDOCAINE HCL-MPF 1% 2ML VIAL IJ PRN (21:30)
[2018-08-28] MEDS ORDERED: ZOLPIDEM TARTRATE 5 MG TAB PO PRN (21:30)
[2018-08-28] MEDS ORDERED: CLONIDINE HCL 0.1 MG TABLET PO PRN (21:30)
[2018-08-28] MEDS ORDERED: DIPHENHYDRAMINE HCL 25 MG CAPSULE PO PRN (21:30)
[2018-08-29] VITALS (7 sets, daily range): BP systolic 87–116; BP diastolic 51–81
[2018-08-29 03:48] LABS: HEMATOCRIT 31.8 % (36-48); MEAN CORPUSCULAR HEMOGLOBIN 28.5 pg (27.0-33.0); MEAN CORPUSCULAR HGB CONC 32.7 g/dL (32.0-36.0); MEAN CORPUSCULAR VOLUME 87.2 fL (79-99); NUCLEATED RED BLOOD CELLS 0.1 % (0.0-0.19); PLATELET COUNT (AUTO) 218 K/uL (130-400); RED BLOOD CELL COUNT(AUTO) 3.64 MIL/uL (4.00-5.50); WHITE BLOOD COUNT (AUTO) 9.2 K/uL (4.8-10.8)
[2018-08-29 04:06] LABS: CREATININE 1.6 mg/dL (0.5-1.5); POTASSIUM 5.7 mmol/L (3.5-5.1)
[2018-08-29] MEDS: ZOSYN 3.375GM+NS 50ML 50 ML IV SCH ×3 (05:07→21:42)
[2018-08-29] MEDS: FUROSEMIDE 10 MG/ML 4ML VIAL IVP SCH ×2 (06:02→21:43)
--- NOTE | 2018-08-29 08:27 | NUR ---
DR. HOLLAND IN ROOM ASSESSING/SPEAKING WITH PT. RE:PLAN OF CARE AND ANSWERING QUESTIONS.
[2018-08-29] MEDS: FAMOTIDINE 20MG TAB 20 MG TAB PO SCH (09:47)
--- NOTE | 2018-08-29 14:46 | NUR ---
DC PLAN PATIENT IS SLEEPING. FROM LAST ADMISSION PATIENT LIVES WITH DAUGHTER. MARQUES, SHOWER CHAIR, HOSPITAL BED. PATIENT HAD [facility] FOR SACRAL WOUND EVERY OTHER DAY. CM WILL CONTINUE TO FOLLOW. Addendum: 08/29/18 at 1448 by RENE GONZALEZ RN CM Amended: Links added.
--- NOTE | 2018-08-29 17:12 | NUR ---
[facility] consult Patient assessed as ordered. Ulcer to coccyx has undermining at 12o'clock to 5o'clock= 1.8cms; at 6o'clock=2.2; at 9o'clock=5.8 and at 10o'clock=6.2 cms. [facility] recommendations submitted. Addendum: 08/29/18 at 1723 by TIM HASSAN RN/VALERIE Amended: Links added.
[2018-08-29] MEDS: HONEY 1 APPL/ML TUBE TP SCH (21:42)
[2018-08-30 03:00] VITALS: BP 102/58
[2018-08-30 04:07] LABS: HEMATOCRIT 29.6 % (36-48); MEAN CORPUSCULAR HEMOGLOBIN 28.7 pg (27.0-33.0); MEAN CORPUSCULAR HGB CONC 33.2 g/dL (32.0-36.0); MEAN CORPUSCULAR VOLUME 86.4 fL (79-99); PLATELET COUNT (AUTO) 203 K/uL (130-400); RED BLOOD CELL COUNT(AUTO) 3.42 MIL/uL (4.00-5.50); RED CELL DISTRIBUTION WIDTH 16.3 % (11.0-15.5); WHITE BLOOD COUNT (AUTO) 9.1 K/uL (4.8-10.8)
[2018-08-30 04:17] LABS: CREATININE 2.7 mg/dL (0.5-1.5); POTASSIUM 5.7 mmol/L (3.5-5.1)
[2018-08-30] MEDS: ZOSYN 3.375GM+NS 50ML 50 ML IV SCH ×2 (05:31→18:12)
[2018-08-30 07:28] VITALS: BP 104/62
[2018-08-30] MEDS: FAMOTIDINE 20MG TAB 20 MG TAB PO SCH (08:13)
[2018-08-30] MEDS: FUROSEMIDE 10 MG/ML 4ML VIAL IVP SCH (08:19)
--- NOTE | 2018-08-30 08:19 | NUR ---
DR. Daniel HOLLAND IN ROOM ASSESSING PT. AND SPEAKING WITH PT. RE:PLAN OF CARE. QUESTIONS ANSWERED BY DR. HOLLAND.
[2018-08-30] MEDS ORDERED: SODIUM POLYSTYRENE SULFONATE 15 GM/60 ML ML PO SCH (08:30)
[2018-08-30] MEDS ORDERED: PHARMACY COMMUNICATION MISC SCH ×2 (08:30→11:30)
[2018-08-30] MEDS ORDERED: SODIUM POLYSTYRENE SULFONATE 15 GM/60 ML ML PO ONE (10:09)
[2018-08-30 11:41] VITALS: BP 99/58
--- NOTE | 2018-08-30 11:52 | NUR ---
Nutrition intervention: Nutrition consult for [facility] recommendation for sacral wound. Pt with good oral intake. Recommend Nutrition supplementation Harjinder BID to assist with wound healing. Recommend feeding assistance. Consult RD as nutrition concerns arise. Addendum: 08/30/18 at [address] Amended: Links added.
[2018-08-30] MEDS ORDERED: RENAL DOSE IV PRN (12:00)
[2018-08-30 15:35] VITALS: BP 107/63
[2018-08-30 19:00] VITALS: BP 107/56
[2018-08-30] MEDS: HONEY 1 APPL/ML TUBE TP SCH (21:01)
[2018-08-30 23:00] VITALS: BP 106/57
[2018-08-31 03:00] VITALS: BP 120/65
[2018-08-31 04:03] LABS: HEMATOCRIT 29.8 % (36-48); MEAN CORPUSCULAR HEMOGLOBIN 28.8 pg (27.0-33.0); MEAN CORPUSCULAR HGB CONC 32.8 g/dL (32.0-36.0); MEAN CORPUSCULAR VOLUME 87.6 fL (79-99); PLATELET COUNT (AUTO) 218 K/uL (130-400); WHITE BLOOD COUNT (AUTO) 8.1 K/uL (4.8-10.8)
[2018-08-31 04:06] LABS: CREATININE 2.1 mg/dL (0.5-1.5); POTASSIUM 4.7 mmol/L (3.5-5.1)
[2018-08-31] MEDS: ZOSYN 3.375GM+NS 50ML 50 ML IV SCH ×2 (05:10→18:23)
[2018-08-31 07:00] VITALS: BP 117/55
[2018-08-31] MEDS: FAMOTIDINE 20MG TAB 20 MG TAB PO SCH (08:16)
[2018-08-31 12:25] VITALS: BP 122/53
[2018-08-31 16:10] VITALS: BP 114/55
[2018-08-31] MEDS ORDERED: PHARMACY COMMUNICATION MISC SCH (18:30)
--- NOTE | 2018-08-31 19:55 | NUR ---
ASSESSMENT PT AAOX4. RESTING QUIETLY IN BED WATCHING TV. DAUGHTER AT BEDSIDE. YAZ GUZMÁN C/D/I. TO BSC WITH ASSIST. PT ORIENTED TO CALL MATTHIEU CHAN WITHIN REACH. WHITE BOARD UP-DATED. ASSESSMENT COMPLETED, SEE FLOW SHEET
[2018-08-31 20:08] VITALS: BP 127/61
[2018-08-31] MEDS: HONEY 1 APPL/ML TUBE TP SCH (21:38)
[2018-09-01] VITALS (7 sets, daily range): BP systolic 125–155; BP diastolic 61–73
[2018-09-01 03:55] LABS: HEMATOCRIT 28.6 % (36-48); MEAN CORPUSCULAR HEMOGLOBIN 28.6 pg (27.0-33.0); MEAN CORPUSCULAR HGB CONC 32.5 g/dL (32.0-36.0); MEAN CORPUSCULAR VOLUME 87.9 fL (79-99); PLATELET COUNT (AUTO) 221 K/uL (130-400); RED BLOOD CELL COUNT(AUTO) 3.25 MIL/uL (4.00-5.50); RED CELL DISTRIBUTION WIDTH 16.3 % (11.0-15.5); WHITE BLOOD COUNT (AUTO) 7.3 K/uL (4.8-10.8)
[2018-09-01 04:07] LABS: CREATININE 1.9 mg/dL (0.5-1.5); POTASSIUM 4.7 mmol/L (3.5-5.1)
[2018-09-01] MEDS: ZOSYN 3.375GM+NS 50ML 50 ML IV SCH ×2 (06:26→17:30)
[2018-09-01] MEDS: FAMOTIDINE 20MG TAB 20 MG TAB PO SCH (09:24)
[2018-09-01] MEDS ORDERED: DEXTROSE 50%-WATER 50 ML DISP.SYRIN IV PRN (13:00)
[2018-09-01] MEDS ORDERED: GLUCAGON 1MG KIT 1 MG ML IM PRN (13:00)
[2018-09-01] MEDS: INSULIN HUMULIN R 100 UNIT/ML 3ML SQ SCH ×3 (13:35→21:00)
--- NOTE | 2018-09-01 14:12 | NUR ---
GLUCOMETER TRENDING UP. I CALLED DR HOLLAND AND RECEIVED ORDERS FOR INSULIN SCALE AC/HS. IT HAS BEEN INITIATED
[2018-09-01] MEDS: HONEY 1 APPL/ML TUBE TP SCH (17:34)
--- NOTE | 2018-09-01 19:24 | NUR ---
HAND OFF REPORT GIVEN TO SUKHJINDER LINK
--- NOTE | 2018-09-01 20:10 | NUR ---
ASSESSMENT PT AAOX4. RESTING QUIETLY IN BED WATCHING TV. DRSG TO COCCYX C/D/I. TO BSC WITH ASSIST. PT ORIENTED TO CALL ROCIO, MATTHIEU WITHIN REACH. WHITE BOARD UP-DATED. ASSESSMENT COMPLETED, SEE FLOW SHEET
[2018-09-02 03:15] VITALS: BP 155/70
[2018-09-02] MEDS: ZOSYN 3.375GM+NS 50ML 50 ML IV SCH ×2 (06:06→18:10)
[2018-09-02] MEDS: INSULIN HUMULIN R 100 UNIT/ML 3ML SQ SCH ×4 (06:06→21:00)
[2018-09-02 07:40] VITALS: BP 128/62
[2018-09-02] MEDS: FAMOTIDINE 20MG TAB 20 MG TAB PO SCH (08:34)
[2018-09-02 12:10] VITALS: BP 151/82
[2018-09-02 15:27] VITALS: BP 154/76
[2018-09-02] MEDS ORDERED: SODIUM CHLORIDE 0.9% 1000ML 1,000 ML IV SCH (19:00)
[2018-09-02 19:32] VITALS: BP 150/71
[2018-09-02] MEDS: HONEY 1 APPL/ML TUBE TP SCH (22:01)
[2018-09-02 23:07] VITALS: BP 150/71
[2018-09-03] VITALS (7 sets, daily range): BP systolic 124–203; BP diastolic 62–88
[2018-09-03] MEDS: ZOSYN 3.375GM+NS 50ML 50 ML IV SCH ×2 (06:05→17:05)
[2018-09-03] MEDS: INSULIN HUMULIN R 100 UNIT/ML 3ML SQ SCH ×4 (07:30→21:00)
--- NOTE | 2018-09-03 10:13 | NUR ---
DC PLAN ORDER FOR [facility]. EXPLAINED TO NURSE THAT I NEED FORM OR AT LEAST WHICH ANTIBIOTIC AND FOR HOW LONG AND IF PICC WAS ALREADY PLACE. NURSE TO CALL MD FOR ORDER CLARIFICATION. Addendum: 09/03/18 at 1014 by RENE GONZALEZ RN CM Amended: Links added.
[2018-09-03] MEDS: FAMOTIDINE 20MG TAB 20 MG TAB PO SCH (10:29)
[2018-09-03 12:07] LABS: INR 0.93 (0.85-1.15); PROTHROMBIN TIME 9.8 SEC (9.6-11.6)
--- NOTE | 2018-09-03 14:01 | NUR ---
DC PLAN VISITED WITH PATIENT. PATIENT WANTED ME TO SPEAK TO DAUGHTER REGARDING [facility] SINCE SHE WOULD BE THE ONE HAVING TO TAKE HER. SPOKE TO DTR KEYANA BRONSON. EXPLAINED MD RECOMMENDATIONS GAVE TELEPHONE OKAY. DOUG CO SIGNED WITH FARIBA AGUILAR. INFO AVAILABLE SENT TO [facility]. MISSING ORDER SHEET LEFT FLAG IN CHART FAXED TO BOTH [facility] AND [place] OFFICE OF DR. HOLLAND. ALSO NEEDING PICC. Addendum: 09/03/18 at 1406 by RENE GONZALEZ RN Amended: Links added.
[2018-09-03] MEDS: HONEY 1 APPL/ML TUBE TP SCH (20:38)
[2018-09-04 03:35] VITALS: BP 131/60
[2018-09-04 03:54] LABS: BASOPHILS % (AUTO) 0.4 % (0.0-5.0); HEMATOCRIT 26.7 % (36-48); LYMPHOCYTES % (AUTO) 18.6 % (21.0-51.0); MEAN CORPUSCULAR HEMOGLOBIN 29.2 pg (27.0-33.0); MEAN CORPUSCULAR HGB CONC 33.8 g/dL (32.0-36.0); MEAN CORPUSCULAR VOLUME 86.4 fL (79-99); MONOCYTES % (AUTO) 12.3 % (3.0-13.0); NEUTROPHILS % (AUTO) 62.7 % (40.0-77.0); PLATELET COUNT (AUTO) 195 K/uL (130-400); RED CELL DISTRIBUTION WIDTH 16.3 % (11.0-15.5); WHITE BLOOD COUNT (AUTO) 5.8 K/uL (4.8-10.8)
[2018-09-04] MEDS: INSULIN HUMULIN R 100 UNIT/ML 3ML SQ SCH (05:28)
[2018-09-04] MEDS: ZOSYN 3.375GM+NS 50ML 50 ML IV SCH (05:28)
[2018-09-04 07:31] VITALS: BP 125/60
--- NOTE | 2018-09-04 07:45 | NUR ---
ASSESSMENT ENCOUNTERED PT A&OX3, CALM COOPERATIVE AND DOES NOT APPEAR TO BE IN ANY DISTRESS NOR ANY NEURO DEFICITS PRESENT. PT DENIES PAIN, SOB, NAUSEA. PICC LINE TO LEFT UPPER ARM, SITE DRY AND INTACT, WITH 3 PORTS, PT IS AMBULATORY, GAIT SLOW BUT STEADY WITH STAND BY ASSIST. CALL LIGHT WITHIN REACH.
--- NOTE | 2018-09-04 08:30 | NUR ---
DR HOLLAND AT BEDSIDE UPDATE GIVEN, ORDERS RECEIVED.
[2018-09-04] MEDS: FAMOTIDINE 20MG TAB 20 MG TAB PO SCH (10:18)
--- NOTE | 2018-09-04 11:16 | NUR ---
DC PLAN [facility] FORM SIGN AND PICC PLACED LAST NIGHT. COMPLETE PACKET SENT TO [facility]. MIROSLAVA WILL CONTINUE TO FOLLOW. Addendum: 09/04/18 at 1119 by RENE GONZALEZ RN CM Amended: Links added.
--- NOTE | 2018-09-04 12:32 | NUR ---
DC PLAN SPOKE TO [facility] PATIENT ACCEPTED. SPOKE TO DAUGHTER EXPLAINED AGAIN ABOUT HAVING TO REGISTER. SAID SHE IS IN A HURRY REALLY WANTS TO LEAVE ALREADY. GAVE HER OPTION OF GOING AND FINISHING REGISTERING AND COMING BACK FOR MOM ONCE WE KNOW EVERYTHING IS SET UP AND APPROVED BY INSURANCE OR SHE CAN TAKE MOM AND GO FINISH REGISTERING. SAID WANTS TO TAKE MOM AND WILL GO FINISH REGISTERING. GAVE PAPER WITH INFO TO [facility] AND ANSWERED ALL QUESTIONS ASKED. Addendum: 09/04/18 at 1235 by RENE GONZALEZ RN CM Amended: Links added.
--- NOTE | 2018-09-04 13:00 | NUR ---
DISCHARGE INSTRUCTIONS GIVEN, PIV REMOVED AND INTACT, DISCHARGED HOME TO FAMILY VEHICLE VIA WHEELCHAIR.
== END 2018-09-04 12:17 | disposition home or self-care (01) | DRG 641 ==
LOC: EDH 15:42 → EDHIP 16:00 → 2DH 08-28 16:29
PROVIDERS: ADMIT Family Medicine; ATTEND Family Medicine
PROC: 02HV33Z Insertion of Infusion Device into Superior Vena Cava, Percutaneous Approach (ICD-10-PCS; principal; 2018-09-03)
DX: E87.70 Fluid overload, unspecified (principal); L89.159 Pressure ulcer of sacral region, unspecified stage; J84.10 Pulmonary fibrosis, unspecified; L08.9 Local infection of the skin and subcutaneous tissue, unspecified; B96.5 Pseudomonas (aeruginosa) (mallei) (pseudomallei) as the cause of diseases classified elsewhere; E87.5 Hyperkalemia; N18.9 Chronic kidney disease, unspecified; E87.6 Hypokalemia; R09.89 Other specified symptoms and signs involving the circulatory and respiratory systems; I12.9 Hypertensive chronic kidney disease with stage 1 through stage 4 chronic kidney disease, or unspecified chronic kidney disease; E11.22 Type 2 diabetes mellitus with diabetic chronic kidney disease
CPT/HCPCS: 36415; 71045; 71046; 80048; 80053; 81001; 82948; 85025; 85027; 85610; 85730; 87040; 87070; 87077; 87186; 93005; 94640; 94664; C1894; G0378; J1815; J1940; J1956; J2405; J2543